=== PATIENT | female | born 1935 | race Caucasian/White ===

== ENCOUNTER 2020-11-25 10:47 | Inpatient (IN) | payer OTHER ==
[~2020-11-25] VITALS: Ht 162.6 cm; Wt 60.9 kg
[~2020-11-25 10:47] MED LIST: AMLODIPINE BESY10 MG PO; ASPIRIN325 MG PO; CALCIUM500 MG PO; CEFTIN250 MG/5 M PO; COLACE100 MG PO; LISINOPRIL5 MG PO; MACROBID 100 M100 MG PO; OMEGA 3 1,0001 EACH PO; PRAVACHOL40 MG PO; SEROQUEL25 MG PO; SINGULAIR10 MG PO; SYNTHROID50 MCG PO
[2020-11-25 12:28] LABS: HEMOGLOBIN 13.3 gm/dl (12.3-15.3); RED BLOOD COUNT 4.95 M/UL (4.00-5.10); WHITE BLOOD COUNT 8.5 K/UL (4.5-11.0)
[2020-11-25 12:44] LABS: BUN/CREATININE RATIO 24 (0-10)
[2020-11-25] MEDS ORDERED: DEPAKOTE125 MG PO (13:48)
[2020-11-25] MEDS ORDERED: QUETIAPINE FUMA25 MG PO (18:48)
[2020-11-25] MEDS ORDERED: ASPIRIN EC325 MG PO (18:49)
[2020-11-26 04:01] LABS: HEMOGLOBIN 11.5 gm/dl (12.3-15.3); WHITE BLOOD COUNT 8.6 K/UL (4.5-11.0)
[2020-11-26 04:05] LABS: RED BLOOD COUNT 4.21 M/UL (4.00-5.10)
[2020-11-27 05:00] LABS: HEMOGLOBIN 12.9 gm/dl (12.3-15.3)
[2020-11-27 05:10] LABS: RED BLOOD COUNT 4.66 M/UL (4.00-5.10); WHITE BLOOD COUNT 11.1 K/UL (4.5-11.0)
[2020-11-28 03:25] LABS: HEMOGLOBIN 11.4 gm/dl (12.3-15.3)
[2020-11-28 03:26] LABS: RED BLOOD COUNT 4.14 M/UL (4.00-5.10); WHITE BLOOD COUNT 7.9 K/UL (4.5-11.0)
[2020-11-29 03:21] LABS: HEMOGLOBIN 10.3 gm/dl (12.3-15.3); RED BLOOD COUNT 3.76 M/UL (4.00-5.10)
[2020-11-30 06:32] LABS: HEMOGLOBIN 9.5 gm/dl (12.3-15.3); RED BLOOD COUNT 3.46 M/UL (4.00-5.10); WHITE BLOOD COUNT 8.6 K/UL (4.5-11.0)
[2020-11-30] MEDS ORDERED: HYDROCODON-ACE1 EAC4 PO (11:24)
[2020-12-02 04:03] LABS: HEMOGLOBIN 8.4 gm/dl (12.3-15.3); WHITE BLOOD COUNT 9.3 K/UL (4.5-11.0)
[2020-12-02 04:05] LABS: RED BLOOD COUNT 3.1 M/UL (4.00-5.10)
[2020-12-02 04:29] LABS: BUN/CREATININE RATIO 28 (0-10)
[2020-12-02] MEDS ORDERED: SENNA LAX8.6 MG PO (14:46)
[2020-12-02] MEDS ORDERED: POLYETHYLENE GL17 GM PO (14:46)
[2020-12-02] MEDS ORDERED: ENOXAPARIN40 MG/0.4 SC (14:52)
== END 2020-12-02 17:43 | disposition home health service (06) | DRG 522 ==
LOC: ER1 10:47 → M/S 13:26 → CDU 13:26 → M/S 21:14
PROVIDERS: Internal Medicine; Orthopaedic Surgery; Physician Assistant; Physician Assistant Medical; ADMIT Internal Medicine
PROC: 0SRR0J9 Replacement of Right Hip Joint, Femoral Surface with Synthetic Substitute, Cemented, Open Approach (ICD-10-PCS; principal; 2020-11-27 09:00)
DX: S72.001A Fracture of unspecified part of neck of right femur, initial encounter for closed fracture (principal); D62 Acute posthemorrhagic anemia; Z20.822 Contact with and (suspected) exposure to COVID-19; W18.30XA Fall on same level, unspecified, initial encounter; I10 Essential (primary) hypertension; E78.5 Hyperlipidemia, unspecified; F03.90 Unspecified dementia, unspecified severity, without behavioral disturbance, psychotic disturbance, mood disturbance, and anxiety; Z85.42 Personal history of malignant neoplasm of other parts of uterus; Y92.009 Unspecified place in unspecified non-institutional (private) residence as the place of occurrence of the external cause; Z88.0 Allergy status to penicillin; Z83.3 Family history of diabetes mellitus; Y93.9 Activity, unspecified; Z79.82 Long term (current) use of aspirin; Z79.899 Other long term (current) drug therapy
CPT/HCPCS: 36415; 71045; 72170; 73502; 73552; 80048; 80053; 82550; 82553; 83735; 84484; 85025; 85027; 85610; 86850; 86900; 86901; 93005; 96374; 96375; 96376; 97110-GP-CQ; 97162; 97166; 97530; 97530-GP-CQ; 97535; 99285; C1713; C1776; J1100; J1170; J1650; J2001; J2270; J2405; J2704; J2710; J3010; J7120; U0002